=== PATIENT | male | born 1995 | race Two or more races ===

== ENCOUNTER 2016-11-14 00:31 | Emergency (ER) | payer OTHER ==
[2016-11-14 00:46] VITALS: BP 160/69; PULSE 90; TEMP 97.7; BMI 27.9
[2016-11-14 01:00] LABS: AUTOMATED BASOPHIL 0.4 % (0-2); AUTOMATED EOSINOPHIL 0.5 % (0-5); AUTOMATED LYMPH 13.5 % (17-44); AUTOMATED MONOCYTE 6.8 % (3-10); AUTOMATED NEUTROPHIL 78.8 % (45-76); MPV 8.9 fL (7.4-10.4)
[2016-11-14 01:01] LABS: LEUKOCYTES/URINE NEG (NEGATIVE); NITRITE/URINE NEG (NEGATIVE); URINE OCCULT BLOOD NEG (NEG/TRACE)
[2016-11-14 01:04] LABS: RBC/URINE 0-2 (0-2); WBC/URINE 0-2 (0-2)
[2016-11-14 01:05] LABS: BLOOD UREA NITROGEN 22 MG/DL (9-20); CALCIUM 9.6 MG/DL (8.4-10.2); CALCULATED OSMOLALITY 281 MOs/Kg (270-290); CHLORIDE 102 mEq/L (98-107); GLUCOSE 145 MG/DL (70-99); SODIUM LEVEL 143 mEq/L (137-146); TOTAL PROTEIN 7.9 G/DL (6.3-8.2)
[2016-11-14] MEDS ORDERED: PROMETHAZINE 25 MG TAB PO ONE (02:00)
[2016-11-14] MEDS ORDERED: OSELTAMIVIR PHOSPHATE 75 MG CAP PO ONE (02:00)
--- NOTE | 2016-11-14 02:03 | EDPRACDOC ---
- General Information Chief Complaint: Flu-Like Symptoms Stated Complaint: VOMITING, FEVER/HEADACHE Time Seen by Provider: 11/14/16 01:53 Mode Of Arrival: Car Home Medications: Home Medications Esomeprazole Mag Trihydrate [Nexium] 40 mg PO DAILY 03/04/13 Oseltamivir Phosphate [Tamiflu] 75 mg PO BID #20 capsule 11/14/16 Promethazine [Phenergan] 25 mg PO Q8H PRN #30 tab 11/14/16 Allergies/Adverse Reactions: Allergies Allergy/AdvReac Type Severity Reaction Status Date / Time No Known Allergies Allergy Verified 03/03/13 15:14 - History of Present Illness Onset: yesterday HPI: PATIENT PRESENTS C/O NAUSEA/VOMITING AND A COUGH FOR 24 HOURS. SUBJECTIVE FEVER. COUGH NONPRODUCTIVE. ACHES ALL OVER Shortness of Breath: None Relevant History of: Reports: None Cough: Reports: Non-productive Rhinorrhea: Reports: Clear Fever Severity/Quality: Reports: subjective Ear Symptoms: Reports: None Associated Signs & Symptoms: Reports: Cough, Nasal Symptoms, Nausea, Vomiting Oral Intake: Normal Urinary Output: Normal ED Past Medical History - History Reviewed Yes Nurses notes reviewed and agree except as marked Travel Outside of [place] in the Last 3 Months?: No - Patient Medical History Systemic History: Denies: Cancer Surgical History: Reports: Cholecystectomy - Social Medical History ETOH: None Substance Abuse: None Lives With: Family Lives In: Home EDM Review of Systems - Review of Systems ROS Negative Except as Marked: Yes All systems reviewed and were negative except as marked Constitutional: Fatigue. negative: Chills, Fever, Loss of Appetite, Weakness Eyes: No Symptoms Reported. negative: Redness, Blurred Vision, Double Vision, Discharge, Pain, Light Sensitive, Photophobia Ears: No Symptoms Reported. negative: Pain, Hearing Loss, Drainage, Ear Pulling Throat: No Symptoms Reported. negative: Pain, Swelling Nose: No Symptoms Reported. negative: Congestion, Bleeding, Discharge, Injection, Swelling, Deformity, Ecchymosis, Tender, Abrasion, Laceration Mouth: No Symptoms Reported. negative: Pain, Drooling Respiratory: Cough. negative: Barky Cough, Brassy Cough, Hemoptysis, Shortness of Breath, Wheezing Cardiovascular: No Symptoms Reported. negative: Chest Pain, Palpitations, Syncope, Edema, Orthopnea, PND, Skin Mottling, Cyanosis Gastrointestinal: Nausea, Vomiting. negative: Constipation, Diarrhea, Formula Intolerance, Melena, Pain Genitourinary: No Symptoms Reported. negative: Dysuria, Hematuria, Frequency, Discharge, Bleeding, Testicular Pain, Neurological: No Symptoms Reported. negative: Headache, Dizziness, Seizure, Numbness, Weakness, Speech Difficulty, Gait Difficulty Musculoskeletal: No Symptoms Reported. negative: Neck, Chestwall, Ribs, Back, Shoulder, Arm, Elbow, Forearm, Wrist, Hand, Pelvis, Hip, Femur, Knee, Leg, Ankle , Foot Integumentary: No Symptoms Reported. negative: Itching, Rash, Bruising, Wound Allergic/Immunologic: No Symptoms Reported. negative: Hives, Itching Hematologic: No Symptoms Reported. negative: Lymphadenopathy, Easy Bruising, Easy Bleeding Endocrine: No Symptoms Reported. negative: Weight Gain, Weight Loss Psychiatric: No Symptoms Reported. negative: Anxiety, Depression, Hallucinations, Insomnia, Suicidal - Physical Exam Constitutional: Alert (Awake), No apparent distress Oriented to: Time, Person, Place Last recorded Vital Signs: Last Vital Signs Temp 97.7 F 11/14/16 00:39 Pulse 90 11/14/16 00:39 Resp 20 11/14/16 00:39 BP 160/69 11/14/16 00:39 Pulse Ox 100 11/14/16 00:39 Oxygen Pulse Oxygen Saturation 100 O2 Device Room Air Oxygen Flow Rate Fraction of Inspired Oxygen ( FIO2) - HEENT Head: Normal ( normocephalic) Eye Exam: Normal (PERRL, EOMI, Sclera white) Oropharynx: Normal (Pharynx:Moist without exudate,Gums-no swelling) Tympanic Membrane: Normal ENT EAC: Normal TMJ: Normal Nose: No Symptoms Reported (septum midline) Neck: Normal (FROM, trachea at midline) - Respiratory/Cardiovascular Respiratory: Normal - CTA (BBS clear to auscultation without adventitious sounds ) Cardiovascular: Normal (RRR without murmur, gallop or rub) - GI Auscultation: Normal (NABS) Palpation: Normal (Soft,No rebound or guarding, non distended) Tenderness: Non tender Tamayo's Sign: Negative - Musculoskeletal Back: Normal (Non-Tender) Extremities: Normal (Normal tone, Pulses 2+ No cyanosis or edema, FROM) - Integumentary Skin: Normal, Warm, Dry Lymphatics: Normal (no adenopathy) - Neurologic Memory Impaired: Normal Motor Function: Normal (Normal tone, Pulses 2+ No cyanosis or edema, FROM) Cranial Nerve: Normal (CN II-X11 intact sensation, strength 5/5) Cerebellar: Normal Mood Description: Normal Perception: Normal - Results 11/14/16 00:47 11/14/16 00:47 WBC 15.2 xk/uL (3.8-10.8) H 11/14/16 00:47 RBC 5.30 xM/uL (4.70-6.10) 11/14/16 00:47 Hgb 15.8 g/dL (14.0-18.0) 11/14/16 00:47 Hct 45.2 % (42-52) 11/14/16 00:47 MCV 85 fL (80-94) 11/14/16 00:47 MCH 29.8 pg (27-32) 11/14/16 00:47 MCHC 35.0 g/dl (33-36) 11/14/16 00:47 RDW 12.8 % (11.5-14.5) 11/14/16 00:47 Plt Count 225 xk/uL (130-400) 11/14/16 00:47 MPV 8.9 fL (7.4-10.4) 11/14/16 00:47 Neut % (Auto) 78.8 % (45-76) H 11/14/16 00:47 Lymph % (Auto) 13.5 % (17-44) L 11/14/16 00:47 [place] % (Auto) 6.8 % (3-10) 11/14/16 00:47 Eos % (Auto) 0.5 % (0-5) 11/14/16 00:47 Baso % (Auto) 0.4 % (0-2) 11/14/16 00:47 Absolute Neuts (auto) 11.86 xk/uL (1.7-8.2) H 11/14/16 00:47 Absolute Lymphs (auto) 1.98 xk/uL (0.65-4.75) 11/14/16 00:47 Sodium 143 mEq/L (137-146) 11/14/16 00:47 Potassium 3.7 mEq/L (3.5-5.1) 11/14/16 00:47 Chloride 102 mEq/L (98-107) 11/14/16 00:47 Carbon Dioxide 26 mMOL/L (22-33) 11/14/16 00:47 Anion Gap 19 mEq/L (8-16) H 11/14/16 00:47 BUN 22 MG/DL (9-20) H 11/14/16 00:47 Creatinine 0.90 MG/DL (0.66-1.25) 11/14/16 00:47 Estimated GFR (MDRD) > 60 mL/min (>=60) 11/14/16 00:47 Glucose 145 MG/DL (70-99) H 11/14/16 00:47 Calculated Osmolality 281 MOs/Kg (270-290) 11/14/16 00:47 Calcium 9.6 MG/DL (8.4-10.2) 11/14/16 00:47 Total Bilirubin 0.9 MG/DL (0.2-1.3) 11/14/16 00:47 AST 97 IU/L (17-59) H 11/14/16 00:47 ALT 196 IU/L (21-72) H 11/14/16 00:47 Alkaline Phosphatase 112 IU/L (38-126) 11/14/16 00:47 Total Protein 7.9 G/DL (6.3-8.2) 11/14/16 00:47 Albumin 4.7 G/DL (3.5-5.0) 11/14/16 00:47 Urine Color Yellow 11/14/16 00:47 Urine Clarity Clear 11/14/16 00:47 Urine pH 5.0 (5.0-8.0) 11/14/16 00:47 Ur Specific [place] 1.030 11/14/16 00:47 Urine Protein 1+ (NEG/TRACE) H 11/14/16 00:47 Urine Glucose (UA) Sl tr (NEGATIVE) 11/14/16 00:47 Urine Ketones Neg (NEGATIVE) 11/14/16 00:47 Urine Occult Blood Neg (NEG/TRACE) 11/14/16 00:47 Urine Nitrite Neg (NEGATIVE) 11/14/16 00:47 Urine Bilirubin Neg (NEGATIVE) 11/14/16 00:47 Urine Urobilinogen 0.2 MG/DL (0-1) 11/14/16 00:47 Ur Leukocyte Esterase Neg (NEGATIVE) 11/14/16 00:47 Urine RBC 0-2 (0-2) 11/14/16 00:47 Urine WBC 0-2 (0-2) 11/14/16 00:47 Ur Epithelial Cells Occ 11/14/16 00:47 Urine Mucus Occ (NEG/OCC) 11/14/16 00:47 Lab Results 11/14/16 11/14/16 11/14/16 00:47 00:47 00:47 WBC 15.2 H RBC 5.30 Hgb 15.8 Hct 45.2 MCV 85 MCH 29.8 MCHC 35.0 RDW 12.8 Plt Count 225 MPV 8.9 Neut % (Auto) 78.8 H Lymph % (Auto) 13.5 L [place] % (Auto) 6.8 Eos % (Auto) 0.5 Baso % (Auto) 0.4 Absolute Neuts (auto) 11.86 H Absolute Lymphs (auto) 1.98 Sodium 143 Potassium 3.7 Chloride 102 Carbon Dioxide 26 Anion Gap 19 H BUN 22 H Creatinine 0.90 Estimated GFR (MDRD) > 60 Glucose 145 H Calculated Osmolality 281 Calcium 9.6 Total Bilirubin 0.9 AST 97 H ALT 196 H Alkaline Phosphatase 112 Total Protein 7.9 Albumin 4.7 Urine Color Yellow Urine Clarity Clear Urine pH 5.0 Ur Specific [place] 1.030 Urine Protein 1+ H Urine Glucose (UA) Sl tr Urine Ketones Neg Urine Occult Blood Neg Urine Nitrite Neg Urine Bilirubin Neg Urine Urobilinogen 0.2 Ur Leukocyte Esterase Neg Urine RBC 0-2 Urine WBC 0-2 Ur Epithelial Cells Occ Urine Mucus Occ Decision Time to Discharge: 02:58 - Departure Yes I personally saw and evaluated the patient. Disposition: Home Condition: Good Final Diagnosis: Influenza Instructions: Influenza (ED), Pediatric Ibuprofen Dosage Chart Education/Counseling Given Regarding: Diagnosis, Treatment, Prognosis, Follow Up Referrals: None,No Provider [Primary Care Provider] - One Week Lexus Schmidt MD [Staff Physician] - One Week Prescriptions: Oseltamivir Phosphate [Tamiflu] 75 mg PO BID #20 capsule Promethazine [Phenergan] 25 mg PO Q8H PRN #30 tab PRN Reason: Nausea/Vomiting
--- NOTE | 2016-11-14 02:43 | DIRPT ---
CLINICAL DATA: Cough, vomiting, sore throat, diffuse body pain, fevers and chills. EXAM: CHEST 2 VIEW COMPARISON: Chest radiograph October 17, 2014 FINDINGS: Cardiomediastinal silhouette is normal. The lungs are clear without pleural effusions or focal consolidations. Trachea projects midline and there is no pneumothorax. Soft tissue planes and included osseous structures are non-suspicious. IMPRESSION: Normal chest. Electronically Signed By: Tho Dowling M.D. On: 11/14/2016 02:40
[2016-11-14] MEDS ORDERED: IBUPROFEN 800 MG TAB PO ONE (03:16)
== END 2016-11-14 03:19 | disposition home or self-care (01) ==
LOC: ED 00:31
DX: J11.1 Influenza due to unidentified influenza virus with other respiratory manifestations (principal)
CPT/HCPCS: 36415; 71020; 80053; 81001; 85025; 99282; J3490